=== PATIENT | male | born 1960 | race Caucasian/White ===

== ENCOUNTER 2016-12-29 19:33 | Emergency (ER) | payer SELFPAY | END 2016-12-29 19:54 | disposition left against medical advice (07) | LOC: SED 19:33 | DX: R03.0 Elevated blood-pressure reading, without diagnosis of hypertension (principal); Z53.29 Procedure and treatment not carried out because of patient's decision for other reasons ==

== ENCOUNTER 2016-12-29 22:36 | Emergency (ER) | payer OTHER ==
[~2016-12-29] VITALS: Ht 175.3 cm; Wt 86.4 kg
[2016-12-29 22:42] VITALS: BP 153/98; PULSE 80; RESP 16; O2SAT 97
[2016-12-30 00:05] VITALS: BP 135/85; PULSE 83; RESP 16; O2SAT 95
[2016-12-30 00:10] VITALS: BP 135/85; PULSE 83; RESP 16; O2SAT 95
== END 2016-12-30 00:10 | disposition left against medical advice (07) ==
LOC: SED 23:36
DX: Z53.21 Procedure and treatment not carried out due to patient leaving prior to being seen by health care provider (principal)